=== PATIENT | male | born 1985 | race Caucasian/White ===

== ENCOUNTER 2021-06-19 15:25 | Emergency (ER) | payer BC, OTHER ==
[2021-06-19 15:47] VITALS: O2SAT 98
[2021-06-19] MEDS ORDERED: Adacel Vial IM ONE ×2 (16:24→16:34)
--- NOTE | 2021-06-19 16:30 | ERPHSYRPT ---
- History of Present Illness Time Seen by Provider: 06/19/21 15:50 Source: patient, family Patient Subjective Stated Complaint: pt reports laceration to the mid left finger from a utility knife, reports shortly after he passed out and injured his right, great toe. denies any other injury at this time. Triage Nursing Assessment: pt is aox3, speech clear, appropriate, pupils perrl, afebrile, resps easy and non labored, cap refill < 3 seconds, pt skin pink warm dry, approx 1.5 cm lac noted to the dorsal middle finger over the knuckle, skin is well approximated, bleeding is controlled. pt with a small abrasion to the edge of the right great toe nail. minimal bleeding which is controlled at this time. Physician History: Patient is a 30-year-old white male who cut his left middle finger with a box sorter and had a syncopal episode from that and injured his right great toe subsequently. Timing/Duration: today Quality: painful Severity: mild Location: hands (Hand has some the left middle finger a very superficial half centimeter laceration over the PIP joint dorsally), feet (The right toe has a area of bleeding where the right great toenail was partially avulsed) Allergies/Adverse Reactions: No Known Drug Allergies Allergy (Unverified 06/19/21 15:47) Hx Tetanus, Diphtheria Vaccination/Date Given: Yes Hx Influenza Vaccination/Date Given: No Hx Pneumococcal Vaccination/Date Given: No Immunizations Up to Date: Yes Travel Risk - International Travel Have you traveled outside of the country in past 3 weeks: No - Coronavirus Screening Are you exhibiting any of the following symptoms?: No Close contact with a COVID-19 positive Pt in past 14-21 Days: No - Vaccine Status Have you recieved a Covid-19 vaccination: No - Review of Systems Constitutional: No Fever, No Chills Eyes: No Symptoms Ears, Nose, & Throat: No Symptoms Respiratory: No Cough, No Dyspnea Cardiac: No Chest Pain, No Edema, No Syncope Abdominal/Gastrointestinal: No Abdominal Pain, No Nausea, No Vomiting, No Diarrhea Genitourinary Symptoms: No Dysuria Musculoskeletal: No Back Pain, No Neck Pain Skin: No Rash Neurological: No Dizziness, No Focal Weakness, No Sensory Changes Psychological: No Symptoms Endocrine: No Symptoms All Other Systems: Reviewed and Negative - Past Medical History Pertinent Past Medical History: Yes Cardiac History: Hypertension - Past Surgical History Past Surgical History: Yes Other Surgical History: jaw repair - Social History Smoking Status: Never smoker Drug Use: none Patient Lives Alone: No - Nursing Vital Signs Nursing Vital Signs: Initial Vital Signs Temperature 98 F 06/19/21 15:35 Pulse Rate 84 06/19/21 15:35 Respiratory Rate 18 06/19/21 15:35 Blood Pressure 126/82 06/19/21 15:35 O2 Sat by Pulse Oximetry 98 06/19/21 15:35 Pain Scale Pain Intensity 2 - Physical Exam General Appearance: no apparent distress, alert Eye Exam: PERRL/EOMI, eyes nml inspection Ears, Nose, Throat Exam: normal ENT inspection, pharynx normal, moist mucous membranes Neck Exam: normal inspection, non-tender, supple, full range of motion Respiratory Exam: normal breath sounds, lungs clear, No respiratory distress Cardiovascular Exam: regular rate/rhythm, normal heart sounds Gastrointestinal/Abdomen Exam: soft, mass, No tenderness Back Exam: normal inspection, normal range of motion, No CVA tenderness, No vertebral tenderness Extremity Exam: normal inspection, normal range of motion Neurologic Exam: alert, oriented x 3, cooperative, normal mood/affect, sensation nml, other (Examination of the left middle finger shows 1/2 cm very superficial linear laceration over the dorsum of the PIP joint. No sutures are required this is simply cleaned and dressed. The right great toe shows some slight avulsion of the distal portion of the nail with some bleeding again no sutures r), No motor deficits Skin Exam: normal color, warm, dry, laceration SpO2: 98 - Course Nursing assessment & vital signs reviewed: Yes Ordered Tests: Active Orders 24 hr Category Date Time Status FOOT (MINIMUM 3 VIEWS) Stat Exams 06/19/21 15:38 Taken Medication Summary Generic Name Dose Route Start Last Admin Trade Name Freq PRN Reason Stop Dose Admin Diphtheria/Tetanus/Acell Pertussis 0.5 ml 06/19/21 16:24 Adacel Vial IM 06/19/21 16:25 .ONCE ONE - Progress Progress: improved - Departure Departure Disposition: Home Clinical Impression: Finger laceration, Nail avulsion of toe Condition: Stable Critical Care Time: No Referrals: YUAN PRECIADO MD [Primary Care Provider] - Instructions: Wound Care
[2021-06-19 17:00] VITALS: BP 111/74; PULSE 80
--- NOTE | 2021-06-19 21:08 | XRAY ---
Indication: 1st and 2nd toe laceration. Comparison: None 3 nonweightbearing views right foot demonstrates great toe overlying bandage material. No other bony, articular, or soft tissue abnormalities.
== END 2021-06-19 17:01 | disposition home or self-care (01) ==
LOC: ED 15:25
DX: S61.213A Laceration without foreign body of left middle finger without damage to nail, initial encounter (principal); W26.0XXA Contact with knife, initial encounter; Y93.9 Activity, unspecified; Y92.9 Unspecified place or not applicable; R55 Syncope and collapse; S90.411A Abrasion, right great toe, initial encounter; S91.201A Unspecified open wound of right great toe with damage to nail, initial encounter
CPT/HCPCS: 73630; 90471; 90715; 99283